=== PATIENT | female | born 1970 | race Caucasian/White ===

== ENCOUNTER 2020-11-22 06:09 | Emergency (ER) | payer OTHER, SELFPAY ==
[2020-11-22] VITALS (12 sets, daily range): BP systolic 99–124; BP diastolic 54–69; PULSE 63–81; RESP 14–30; TEMP 36.5; O2SAT 93–100; BMI 21.9
--- NOTE | 2020-11-22 06:24 | ED.SYNCOPE ---
HPI - Syncope <Luis Nowak DO - Last Filed: 11/23/20 00:46> General Chief Complaint: Syncope Stated Complaint: N/V Time Seen by Provider: 11/22/20 06:10 Source: patient and EMS Mode of arrival: EMS Limitations: no limitations History of Present Illness HPI narrative: 50F nonsmoker with history of POTS and Lyme Disease presents with EMS for evaluation of a syncopal episode this morning. She's had significant N/V since flying to [facility] from the [facility] a few days ago. She states she frequently develops motion sickness when traveling. She came to visit her family. She has had N/V and has poor oral intake and hasn't been able to take all of her medications as the result. This morning she stood up and had a syncopal episode and EMS was contacted for evaluation. On arrival she has BP in the 40s and felt better when laying flat. She was given an IV with fluid and some zofran and on arrival she was in the low 100s. She denies any injury as a consequence of her fall. She is feeling much better. She denies fever or chills. She had no palpitations or chest pain. She's had no abdominal pain. She has no dysuria, frequency, or urgency. MD complaint: loss of consciousness and felt faint Onset (ago): minute(s) Prodromal symptoms: lightheaded Witnessed: yes - by bystander Context: standing up Injuries sustained associated with event: none Current symptoms: back to baseline Related Data Allergies Allergy/AdvReac Type Severity Reaction Status Date / Time No Known Drug Allergies Allergy Verified 11/22/20 06:21 Review of Systems <Luis Nowka DO - Last Filed: 11/23/20 00:46> Constitutional Constitutional: Denies chills, Denies fatigue, Denies fever(s), Denies frequent falls, Denies lethargy and Denies weakness Eyes Eyes: Denies change in vision, Denies eye discharge, Denies irritation and Denies loss of vision ENT Ears, Nose, Mouth, and Throat: Denies change in voice, Denies dizziness, Denies neck pain, Denies sore throat and Denies throat swelling Cardiovascular Cardiovascular: Denies chest pain, Denies irregular heart rhythm, Reports lightheadedness, Denies palpitations, Denies dyspnea, Denies dyspnea on exertion and Denies orthopnea Respiratory Respiratory: Denies cough, Denies dyspnea, Denies dyspnea on exertion and Denies wheezing Gastrointestinal Gastrointestinal: Denies abdominal pain, Denies change in bowel habits, Denies diarrhea, Reports nausea and Reports vomiting Musculoskeletal Musculoskeletal: Denies neck pain and Denies numbness Integumentary/Breasts Skin/Breast: Denies pruritus, Denies erythema, Denies rash and Denies wounds Neurologic Neurologic: Denies behavioral changes, Denies confusion, Denies dizziness, Denies frequent falls, Denies loss of vision, Denies numbness and Denies weakness Psychiatric Psychiatric: Denies anxiety, Denies behavioral changes, Denies confusion, Denies depression, Denies homicidal ideation and Denies suicidal ideation Endocrine Endocrine: Denies fatigue, Denies flushing and Denies palpitations Hematologic/Lymphatic Hematologic/Lymphatic: Denies easy bruising Allergic/Immunologic Allergic/Immunologic: Denies urticaria, Denies throat swelling and Denies wheezing Patient History <Luis Nowak DO - Last Filed: 11/23/20 00:46> Social History Smoking Status: Never smoker Smoking Status: Never smoker alcohol intake frequency: 0-2 drinks per day Substance Use Type: does not use Exam <Luis Nowak DO - Last Filed: 11/23/20 00:46> Narrative Exam Narrative: GENERAL: [50] year old patient appears stated age. Well-nourished, well-developed patient, in mild distress. Resting comfortably HEAD: Atraumatic. Normocephalic. EYES: Pupils equal round and reactive. Extraocular motions intact. No scleral icterus. No injection or drainage. ENT: Nose without bleeding, purulent drainage. Throat without erythema, tonsillar hypertrophy or exudate. Airway patent. NECK: Trachea midline. Non tender CARDIOVASCULAR: Regular rate and rhythm without murmurs, gallops, or rubs. RESPIRATORY: Clear to auscultation. Breath sounds equal bilaterally. No wheezes, rales, or rhonchi. GASTROINTESTINAL: Abdomen soft, non-tender, nondistended. EXTREMITIES: No edema or joint tenderness. BACK: Nontender without deformity or crepitance. No flank tenderness. NEURO: AOx3. SKIN: No rash or erythema of visible areas Initial Vital Signs Initial Vital Signs: Vital Signs Temperature 97.7 F 11/22/20 06:15 Pulse Rate 65 11/22/20 06:15 Respiratory Rate 15 11/22/20 06:15 Blood Pressure 100/62 11/22/20 06:15 Pulse Oximetry 100 11/22/20 06:15 <Jozef Dotson DO - Last Filed: 11/22/20 17:46> Initial Vital Signs Initial Vital Signs: Vital Signs Temperature 97.7 F 11/22/20 06:15 Pulse Rate 65 11/22/20 06:15 Respiratory Rate 15 11/22/20 06:15 Blood Pressure 100/62 11/22/20 06:15 Pulse Oximetry 100 11/22/20 06:15 Course <Luis Nowak DO - Last Filed: 11/23/20 00:46> Orders Ordered: Discontinued Medications Dextroamphetamine Sulfate (Dextroamphetamine 5 Mg Tablet) 5 mg PO NOW ONE Stop: 11/22/20 09:03 Last Admin: 11/22/20 09:18 Dose: 5 mg Documented by: CORINNE Sodium Chloride (Normal Saline 0.9%) 1,000 mls @ 1,000 mls/hr IV BOLUS ONE Stop: 11/22/20 07:17 Last Infusion: 11/22/20 06:35 Dose: 0 mls/hr Documented by: Admin: 11/22/20 06:30 Dose: 1,000 mls/hr Documented by: CORINNE Sodium Chloride (Normal Saline 0.9%) 1,000 mls @ 1,000 mls/hr IV BOLUS ONE Stop: 11/22/20 08:07 Last Infusion: 11/22/20 08:35 Dose: 0 mls/hr Documented by: Admin: 11/22/20 07:35 Dose: 1,000 mls/hr Documented by: CORINNE Lorazepam (Lorazepam 2 Mg/Ml Inj) 0.5 mg IV NOW ONE Stop: 11/22/20 07:09 Last Admin: 11/22/20 07:34 Dose: 0.5 mg Documented by: CORINNE Midodrine (Midodrine Hcl 5 Mg Tablet) 10 mg PO NOW ONE Stop: 11/22/20 08:53 Last Admin: 11/22/20 08:58 Dose: 10 mg Documented by: CORINNE Vital Signs Vital signs: Vital Signs - 8 hr 11/22/20 10:00 Pulse Rate 74 Respiratory Rate 19 Blood Pressure 102/54 L <Jozef Dotson DO - Last Filed: 11/22/20 17:46> Orders Ordered: Discontinued Medications Dextroamphetamine Sulfate (Dextroamphetamine 5 Mg Tablet) 5 mg PO NOW ONE Stop: 11/22/20 09:03 Last Admin: 11/22/20 09:18 Dose: 5 mg Documented by: CORINNE Sodium Chloride (Normal Saline 0.9%) 1,000 mls @ 1,000 mls/hr IV BOLUS ONE Stop: 11/22/20 07:17 Last Infusion: 11/22/20 06:35 Dose: 0 mls/hr Documented by: Admin: 11/22/20 06:30 Dose: 1,000 mls/hr Documented by: CORINNE Sodium Chloride (Normal Saline 0.9%) 1,000 mls @ 1,000 mls/hr IV BOLUS ONE Stop: 11/22/20 08:07 Last Infusion: 11/22/20 08:35 Dose: 0 mls/hr Documented by: Admin: 11/22/20 07:35 Dose: 1,000 mls/hr Documented by: CORINNE Lorazepam (Lorazepam 2 Mg/Ml Inj) 0.5 mg IV NOW ONE Stop: 11/22/20 07:09 Last Admin: 11/22/20 07:34 Dose: 0.5 mg Documented by: CORINNE Midodrine (Midodrine Hcl 5 Mg Tablet) 10 mg PO NOW ONE Stop: 11/22/20 08:53 Last Admin: 11/22/20 08:58 Dose: 10 mg Documented by: CORINNE Vital Signs Vital signs: Vital Signs - 8 hr 11/22/20 10:00 Pulse Rate 74 Respiratory Rate 19 Blood Pressure 102/54 L MDM - Syncope <Luis Nowak DO - Last Filed: 11/23/20 00:46> Lab Data Result diagrams: 11/22/20 06:15 11/22/20 06:15 Labs: Lab Results 11/22/20 11/22/20 Range/Units 06:15 06:15 WBC 3.7 L (4.5-11.0) X10^3/uL RBC 4.08 (4.0-5.2) X10^6/uL Hgb 13.1 (12.0-16.0) g/dL Hct 38.0 (36-46) % MCV 93.1 (80-100) fL MCH 32.2 (26-34) PG MCHC 34.6 (30-36) % RDW 12.4 (11.6-14.8) % Plt Count 178 (150-400) X10^3/uL Neut % (Auto) 40.9 L (50-75) % Lymph % (Auto) 44.9 H (25-40) % Foster % (Auto) 10.0 (3-14) % Eos % (Auto) 3.0 (2-4) % Baso % (Auto) 1.2 (0-2) % Neut # (Auto) 1500 (0356-8176) /uL Lymph # (Auto) 1700 (3321-3259) /uL Foster # (Auto) 400 (0-900) /uL Eos # (Auto) 100 (0-450) /uL Baso # (Auto) 0 (0-100) /uL Sodium 136 L (137-145) mmol/L Potassium 3.9 (3.4-5.1) mmol/L Chloride 105 (98-107) mmol/L Carbon Dioxide 26 (22-32) mmol/L BUN 13 (7-17) mg/dL Creatinine 0.88 (0.52-1.04) mg/dL Estimated GFR > 60.0 (>60) mL/min BUN/Creatinine Ratio 14.8 (6-22) Glucose 118 H (70-100) mg/dL Calcium 9.4 (8.4-10.2) mg/dL Magnesium 1.9 (1.6-2.3) mg/dL Total Bilirubin 0.5 (0.2-1.3) mg/dL AST 51 H (14-36) IU/L ALT 39 H (<35) IU/L Alkaline Phosphatase 71 (38-126) U/L Total Creatine Kinase 57 (30-135) U/L CK-MB (CK-2) TNP CK-MB (CK-2) Rel Index TNP Troponin I < 0.012 (0.01-0.034) ng/mL Total Protein 6.7 (6.3-8.2) g/dL Albumin 3.9 (3.5-5.0) g/dL Globulin 2.8 (1.7-4.1) g/dL Albumin/Globulin Ratio 1.4 (1.0-2.8) <Jozef Dotson, DO - Last Filed: 11/22/20 17:46> Lab Data Attestation: I reviewed the patient's lab results. Labs: Lab Results 11/22/20 11/22/20 Range/Units 06:15 06:15 WBC 3.7 L (4.5-11.0) X10^3/uL RBC 4.08 (4.0-5.2) X10^6/uL Hgb 13.1 (12.0-16.0) g/dL Hct 38.0 (36-46) % MCV 93.1 (80-100) fL MCH 32.2 (26-34) PG MCHC 34.6 (30-36) % RDW 12.4 (11.6-14.8) % Plt Count 178 (150-400) X10^3/uL Neut % (Auto) 40.9 L (50-75) % Lymph % (Auto) 44.9 H (25-40) % Foster % (Auto) 10.0 (3-14) % Eos % (Auto) 3.0 (2-4) % Baso % (Auto) 1.2 (0-2) % Neut # (Auto) 1500 (8968-3817) /uL Lymph # (Auto) 1700 (2283-1807) /uL Foster # (Auto) 400 (0-900) /uL Eos # (Auto) 100 (0-450) /uL Baso # (Auto) 0 (0-100) /uL Sodium 136 L (137-145) mmol/L Potassium 3.9 (3.4-5.1) mmol/L Chloride 105 (98-107) mmol/L Carbon Dioxide 26 (22-32) mmol/L BUN 13 (7-17) mg/dL Creatinine 0.88 (0.52-1.04) mg/dL Estimated GFR > 60.0 (>60) mL/min BUN/Creatinine Ratio 14.8 (6-22) Glucose 118 H (70-100) mg/dL Calcium 9.4 (8.4-10.2) mg/dL Magnesium 1.9 (1.6-2.3) mg/dL Total Bilirubin 0.5 (0.2-1.3) mg/dL AST 51 H (14-36) IU/L ALT 39 H (<35) IU/L Alkaline Phosphatase 71 (38-126) U/L Total Creatine Kinase 57 (30-135) U/L CK-MB (CK-2) TNP CK-MB (CK-2) Rel Index TNP Troponin I < 0.012 (0.01-0.034) ng/mL Total Protein 6.7 (6.3-8.2) g/dL Albumin 3.9 (3.5-5.0) g/dL Globulin 2.8 (1.7-4.1) g/dL Albumin/Globulin Ratio 1.4 (1.0-2.8) ECG Data Attestation: I personally reviewed and interpreted this ECG as follows: Prior ECG tracings: not available for review Interpretation: Sinus rhythm Ventricular rate is 67 Normal axis Normal QRS Normal QTC No ST T wave changes MDM Narrative Medical decision making narrative: Dr dotson: Received turned over. Reviewed patient's history and physical. She states she is feeling better however she thinks that if she got her dose of midodrine and Adderall she would feel better. She was given these medications. She states she does feel somewhat better. She feels like if she can go home she will continue to improve. She was given return precautions and follow-up instructions. She expressed understanding and agreement. Discharge Plan Departure Patient Disposition: Home Clinical Impression: Dehydration, Nausea and vomiting Instructions: Nausea and Vomiting-Adult Activity Restrictions/Additional Instructions: Continue to increase your fluid intake and take all of your medications at home as directed. Return to the emergency department for any new or worsening symptoms
[2020-11-22 06:28] LABS: Add Manual Diff / Slide Review NO; Basophils Absolute Auto 0 /uL (0-100); Basophils Percent Auto 1.2 % (0-2); Eosinophils Absolute Auto 100 /uL (0-450); Hemoglobin 13.1 g/dL (12.0-16.0); Lymphocytes Absolute Auto 1700 /uL (1100-4500); Lymphocytes Percent Auto 44.9 % (25-40); Mean Corpuscular HGB Conc 34.6 % (30-36); Mean Corpuscular Hemoglobin 32.2 PG (26-34); Mean Corpuscular Volume 93.1 fL (80-100); Monocytes Absolute Auto 400 /uL (0-900); Neutrophils Absolute Auto 1500 /uL (1500-7000); Neutrophils Percent Auto 40.9 % (50-75); Platelet Count 178 X10^3/uL (150-400); Red Blood Cell Count 4.08 X10^6/uL (4.0-5.2); Red Cell Distribution Width 12.4 % (11.6-14.8); White Blood Cell Count 3.7 X10^3/uL (4.5-11.0)
[2020-11-22] MEDS: SODIUM CHLORIDE 0.9% 1,000 ML 1000 ML IV ×2 (06:30→07:35)
[2020-11-22 06:50] LABS: Alanine Aminotransferase 39 IU/L (<35); Albumin 3.9 g/dL (3.5-5.0); Albumin Globulin Ratio 1.4 (1.0-2.8); Alkaline Phosphatase 71 U/L (38-126); Aspartate Aminotransferase 51 IU/L (14-36); BUN Creatinine Ratio 14.8 (6-22); Bilirubin Total 0.5 mg/dL (0.2-1.3); Blood Urea Nitrogen 13 mg/dL (7-17); Calcium 9.4 mg/dL (8.4-10.2); Carbon Dioxide 26 mmol/L (22-32); Chloride 105 mmol/L (98-107); Creatine Kinase 57 U/L (30-135); Estimated Glomerular Filt Rate > 60.0 mL/min (>60); Globulin 2.8 g/dL (1.7-4.1); Glucose 118 mg/dL (70-100); HEMOLYSIS 28 (0-50); Magnesium 1.9 mg/dL (1.6-2.3); Potassium 3.9 mmol/L (3.4-5.1); Sodium 136 mmol/L (137-145); Total Protein 6.7 g/dL (6.3-8.2)
[2020-11-22 07:01] LABS: Troponin I < 0.012 ng/mL (0.01-0.034)
[2020-11-22] MEDS: LORazepam 2 MG/ML INJ 0.5 MG IV (07:34)
[2020-11-22] MEDS: MIDODRINE HCL 5 MG TABLET 10 MG PO (08:58)
[2020-11-22] MEDS: DEXTROAMPHETAMINE 5 MG TABLET PO (09:18)
== END 2020-11-22 10:25 | disposition home or self-care (01) ==
PROVIDERS: Emergency Medicine; Emergency Provider Emergency Medicine
DX: E86.0 Dehydration (principal); R11.2 Nausea with vomiting, unspecified
CPT/HCPCS: 36415; 80053; 82550; 83735; 84484; 85025; 93005; 96361; 96374; 99284; J2060